=== PATIENT | male | born 1930 | race African-American/Black ===

== ENCOUNTER 2017-02-05 20:36 | Emergency (ER) | payer BC ==
[~2017-02-05] VITALS: Ht 182.9 cm; Wt 83.5 kg
[~2017-02-05 20:36] MED LIST: AMLO5TAB4 PO; ASPI-253 PO; ATOR40TA PO; BIMA2.5D5 OP; BISA5TAB4 PO; CARV12.5 PO; CARV3.12 PO; CARV6.25 PO; CARV6.252 PO; CETI10TA22 PO; CLOP75TA PO; CLOP75TA57 PO; DEXT15DR2 OP; DILT120C80 PO; DILT240C2 PO; DOCU100C28 PO; FAMO-63 PO; FAMO10TA26 PO; FERR-26 PO; FLUT12AE IH; GABA-587 PO; GLIP-24 PO; GLIP5TAB10 PO; HYDR-2762 PO; INSU100I13 SQ; L AC460C PO; LISI-334 PO; LISI10TA2 PO; LISI20TA PO; MOME17SP NS; MONT10TA6 PO; MULT1TAB52 PO; NIAC10002 PO; NIAC50TA3 PO; NITR0.4T22 SL; OMEP20CA9 PO; PANT40TA3 PO; RANI300C PO; SENN-79 PO; TERA10CA3 PO; TICA90TA PO; [UNRECOGNIZED DRUG - CODE] PO
--- NOTE | 2017-02-05 22:14 | PHYS DOC ---
Past Medical History Past Medical History: Anemia, CAD, Constipation, COPD, Diabetes-Type II, GERD, High Cholesterol, Hypertension, [place], Renal Disease, Sciatica Additional Past Medical Histor: " IRREGULAR HEART BEAT" CERVICALGIA, ENLARGED PROSTATE, TACHYCARDIA Past Surgical History: Other Additional Past Surgical Histo: CARDIAC STENTS," STENTS IN LEGS" Alcohol Use: None Drug Use: None Adult General Chief Complaint Chief Complaint: DIZZY/LIGHT HEADED [facility] Patient is a 87 year old male who presents with dizziness sensation of lightheadedness just prior to arrival that has since resolved. No headache or blurry vision. There was associated nausea and diaphoresis with this episode. No prior episodes like this before. No chest pain shortness of breath abdominal pain. Patient currently is without complaints. Review of Systems Review of Systems Constitutional: Denies fever or chills [] Eyes: Denies change in visual acuity, redness, or eye pain [] HENT: Denies nasal congestion or sore throat [] Respiratory: Denies cough or shortness of breath [] Cardiovascular: No additional information not addressed in HPI [] GI: Denies abdominal pain, nausea, vomiting, bloody stools or diarrhea [] : Denies dysuria or hematuria [] Musculoskeletal: Denies back pain or joint pain [] Integument: Denies rash or skin lesions [] Neurologic: Denies headache, focal weakness or sensory changes [] Endocrine: Denies polyuria or polydipsia [ All review systems are negative except as mentioned in the history of present illness] Allergies Allergies Allergies Coded Allergies Type Severity Reaction Last Updated Verified Iodinated Contrast- Oral and IV Dye Allergy Intermediate BLISTERS 03/03/14 Yes Penicillins Allergy Intermediate Hives 03/03/14 Yes Physical Exam Physical Exam Constitutional: Well developed, well nourished, no acute distress, non-toxic appearance. [] HENT: Normocephalic, atraumatic, bilateral external ears normal, oropharynx moist, no oral exudates, nose normal. [] Eyes: PERRLA, EOMI, conjunctiva normal, no discharge. [] Neck: Normal range of motion, no tenderness, supple, no stridor. [] Cardiovascular:Heart rate regular rhythm, no murmur [] Lungs & Thorax: Bilateral breath sounds clear to auscultation [] Abdomen: Bowel sounds normal, soft, no tenderness, no masses, no pulsatile masses. [] Skin: Warm, dry, no erythema, no rash. [] Back: No tenderness, no CVA tenderness. [] Extremities: No tenderness, no cyanosis, no clubbing, ROM intact, no edema. [] Neurologic: Alert and oriented X 3, normal motor function, normal sensory function, no focal deficits noted. Cranial nerves II through XII grossly intact [] Psychologic: Affect normal, judgement normal, mood normal. [] Current Patient Data Vital Signs Vital Signs Date Time Temp Pulse Resp B/P (MAP) Pulse Ox O2 Delivery O2 Flow Rate FiO2 02/05/17 21:45 42 13 159/73 (101) 95 Room Air 02/05/17 20:50 97.7 97.7 Lab Values Laboratory Tests Test 02/05/17 20:45 02/05/17 20:50 02/05/17 22:44 02/05/17 23:09 Glucose (Fingerstick) 63 mg/dL (70-99) L 81 mg/dL (70-99) White Blood Count 6.9 x10^3/uL (4.0-11.0) Red Blood Count 4.33 x10^6/uL (4.30-5.70) Hemoglobin 12.1 g/dL (13.0-17.5) L Hematocrit 36.8 % (39.0-53.0) L Mean Corpuscular Volume 85 fL (79-100) Mean Corpuscular Hemoglobin 28 pg (25-35) Mean Corpuscular Hemoglobin Concent 33 g/dL (31-37) Red Cell Distribution Width 16.2 % (11.5-14.5) H Platelet Count 248 x10^3/uL (140-400) Neutrophils (%) (Auto) 68 % (31-73) Lymphocytes (%) (Auto) 22 % (24-48) L Monocytes (%) (Auto) 8 % (0-9) Eosinophils (%) (Auto) 1 % (0-3) Basophils (%) (Auto) 1 % (0-3) Neutrophils # (Auto) 4.7 x10^3uL (1.8-7.7) Lymphocytes # (Auto) 1.5 x10^3/uL (1.0-4.8) Monocytes # (Auto) 0.6 x10^3/uL (0.0-1.1) Eosinophils # (Auto) 0.1 x10^3/uL (0.0-0.7) Basophils # (Auto) 0.1 x10^3/uL (0.0-0.2) Sodium Level 140 mmol/L (136-145) Potassium Level 4.3 mmol/L (3.5-5.1) Chloride Level 103 mmol/L (98-107) Carbon Dioxide Level 26 mmol/L (21-32) Anion Gap 11 (6-14) Blood Urea Nitrogen 17 mg/dL (8-26) Creatinine 1.8 mg/dL (0.7-1.3) H Estimated GFR (Cockcroft-Gault) 43.6 BUN/Creatinine Ratio 9 (6-20) Glucose Level 62 mg/dL (70-99) L Calcium Level 9.6 mg/dL (8.5-10.1) Total Bilirubin 0.3 mg/dL (0.2-1.0) Aspartate Amino Transferase (AST) 25 U/L (15-37) Alanine Aminotransferase (ALT) 23 U/L (16-63) Alkaline Phosphatase 129 U/L (46-116) H Troponin I Quantitative 0.020 ng/mL (0.000-0.055) Total Protein 7.2 g/dL (6.4-8.2) Albumin 3.5 g/dL (3.4-5.0) Albumin/Globulin Ratio 0.9 (1.0-1.7) L Urine Collection Type Unknown Urine Color Yellow Urine Clarity Clear Urine pH 5.5 Urine Specific Mccloud <=1.005 Urine Protein Negative mg/dL (NEG-TRACE) Urine Glucose (UA) Negative mg/dL (NEG) Urine Ketones (Stick) Negative mg/dL (NEG) Urine Blood Trace (NEG) Urine Nitrite Negative (NEG) Urine Bilirubin Negative (NEG) Urine Urobilinogen Dipstick 0.2 mg/dL (0.2 mg/dL) Urine Leukocyte Esterase Negative (NEG) Urine RBC Occ /HPF (0-2) Urine WBC 0 /HPF (0-4) Urine Squamous Epithelial Cells None /LPF Urine Bacteria 0 /HPF (0-FEW) Laboratory Tests 02/05/17 20:50 Laboratory Tests 02/05/17 20:50 EKG EKG EKG sinus rhythm bradycardia rate of 48 no STEMI no ischemic changes QTC normal my interpretation [] Radiology/Procedures Radiology/Procedures Chest x-ray [cardiomegaly] Course & Med Decision Making Course & Med Decision Making Pertinent Labs and Imaging studies reviewed. (See chart for details) Patient is asymptomatic on initial exam. We will check labs EKG chest x-ray to exclude any other issues. Creatinine was at baseline. EKG chest x-ray unremarkable. Patient's symptoms are resolved and was feeling improved and wanted to go home. [] Dragon Disclaimer Dragon Disclaimer This electronic medical record was generated, in whole or in part, using a voice recognition dictation system. Departure Departure Impression: Primary Impression: Dizziness Disposition: HOME, SELF-CARE Condition: IMPROVED Referrals: AB LEVI MD (PCP) Patient Instructions: Dizziness, [id number] NEDA LAROSE MD Feb 05, 2017 22:14
[2017-02-05 22:16] LABS: BASO # 0.1 x10^3/uL (0.0-0.2); BASO % 1 % (0-3); EOS % 1 % (0-3); HEMATOCRIT 36.8 % (39.0-53.0); HEMOGLOBIN 12.1 g/dL (13.0-17.5); LYMPH # 1.5 x10^3/uL (1.0-4.8); LYMPH % 22 % (24-48); MEAN CORPUSCULAR HEMOGLOBIN 28 pg (25-35); MEAN CORPUSCULAR HGB CONC 33 g/dL (31-37); MEAN CORPUSCULAR VOLUME 85 fL (79-100); MONO % 8 % (0-9); NEUT % 68 % (31-73); PLATELET COUNT 248 x10^3/uL (140-400); RED BLOOD COUNT 4.33 x10^6/uL (4.30-5.70); RED CELL DISTRIBUTION WIDTH 16.2 % (11.5-14.5); WHITE BLOOD COUNT 6.9 x10^3/uL (4.0-11.0)
[2017-02-05 22:33] LABS: CALCIUM 9.6 mg/dL (8.5-10.1); CREATININE 1.8 mg/dL (0.7-1.3); GFR 43.6; POTASSIUM 4.3 mmol/L (3.5-5.1)
[2017-02-05 22:47] LABS: ALBUMIN 3.5 g/dL (3.4-5.0); ALBUMIN/GLOBULIN RATIO 0.9 (1.0-1.7); TOTAL BILIRUBIN 0.3 mg/dL (0.2-1.0); TOTAL PROTEIN 7.2 g/dL (6.4-8.2)
[2017-02-05 22:51] LABS: BILIRUBIN,URINE NEGATIVE (NEG); GLUCOSE,URINE NEGATIVE (NEG); NITRITE,URINE NEGATIVE (NEG); PH,URINE 5.5; PROTEIN,URINE NEGATIVE (NEG-TRACE); UROBILINOGEN,URINE 0.2 mg/dL (0.2 mg/dL)
[2017-02-05 22:57] LABS: BACTERIA,URINE 0 /HPF (0-FEW); RBC,URINE OCC /HPF (0-2); WBC,URINE 0 /HPF (0-4)
[2017-02-05 23:15] VITALS: BP 191/81
--- NOTE | 2017-02-06 06:39 | EKG ---
[facility] [address] [place] [address] Test Date: 2017-02-05 Test Time: 20:50:27 Pat Name: BLAZE ZHENG Department: Room: Gender: M Cut Off Man: : 1930 Requested By: NDEA LAROSE Order Number: [id number] Reading MD: Measurements Intervals [place] Rate: 48 P: -106 MD: 172 QRS: -30 QRSD: 96 T: 59 QT: 458 QTc: 409 Interpretive Statements SUPRAVENTRICULAR RHYTHM ABNORMAL LEFT AXIS DEVIATION LEFT ANTERIOR FASCICULAR BLOCK RI6.01 Unconfirmed report No previous ECG available for comparison
--- NOTE | 2017-02-06 07:40 | RAD ---
Portable chest, 2016: History: Dizzy spell Comparison is made to a study from 08/19/2016. The heart size is normal. There is calcific plaquing of the aorta. The pulmonary vascularity is within normal limits. No pulmonary infiltrates are seen. There is no evidence of pleural fluid. IMPRESSION: No acute cardiopulmonary abnormality is detected.
== END 2017-02-05 23:26 | disposition home or self-care (01) ==
LOC: ER 20:36
DX: R42 Dizziness and giddiness (principal); R61 Generalized hyperhidrosis; R11.0 Nausea; I25.10 Atherosclerotic heart disease of native coronary artery without angina pectoris; J44.9 Chronic obstructive pulmonary disease, unspecified; E11.22 Type 2 diabetes mellitus with diabetic chronic kidney disease; I12.9 Hypertensive chronic kidney disease with stage 1 through stage 4 chronic kidney disease, or unspecified chronic kidney disease; N18.9 Chronic kidney disease, unspecified; K21.9 Gastro-esophageal reflux disease without esophagitis; E78.00 Pure hypercholesterolemia, unspecified; N40.0 Benign prostatic hyperplasia without lower urinary tract symptoms; I25.2 Old myocardial infarction; Z95.5 Presence of coronary angioplasty implant and graft; Z88.0 Allergy status to penicillin; Z91.041 Radiographic dye allergy status
CPT/HCPCS: 36415; 71010; 80053; 81001; 82962; 84484; 85027; 93005; 99285-25

== ENCOUNTER → 2017-02-12 | Outpatient (CLI) | payer BC ==
[2017-02-05 23:15] VITALS: BP 191/81
--- NOTE | 2017-02-12 12:37 | KCIC ---
MRA Brain History:Chronic headaches, dizziness, blurred vision, hypertension Technique: 3-D [id number] MR angiography was performed of the brain. Axial FLAIR and diffusion images were also acquired. Comparison: None Contrast: None Findings: Determination of any degree of stenosis is based on NASCET criteria. There is no evidence of recent infarct or intracranial mass effect. Both vertebral arteries constitute the basilar artery. There is visualization of segments bilateral PICAs and AICAs. There is visualization of bilateral superior cerebellar arteries. There is fairly prominent left posterior communicating artery, no significant right posterior communicating artery visualized. There is small caliber anterior communicating artery. There is visualization of bilateral anterior, middle, and posterior cerebral arteries. Left P1 segment is very hypoplastic. More distal anterior cerebral arteries are not included. Flow is seen in the petrous, cavernous, and supraclinoid internal carotid arteries. Allowing for motion, no significant focal stenosis or aneurysm is identified. Impression: 1. Allowing for motion, no significant stenosis or aneurysm is identified. Neck MRA without contrast History:Chronic headaches, dizziness, blurred vision, hypertension Technique: [id number] MR angiography was performed of the neck. Contrast: None due to patient's renal function Comparison: None Findings: Determination of any degree of stenosis is based on NASCET criteria. Exam is limited due to lack of contrast and also fairly prominent motion. Antegrade flow is demonstrated in the bilateral vertebral arteries as well as the bilateral common and internal carotid arteries. Origins of great vessel are not fully included for accurate evaluation, also artifact in this area. There is tortuosity of the distal cervical left internal carotid artery, also of the mid cervical right internal carotid artery. No significant focal stenosis is identified of the left common or internal carotid arteries. Accurate evaluation for stenosis of the mid right internal carotid artery is limited due to degree of tortuosity, difficult to exclude more significant narrowing at site of maximal tortuosity. No significant focal stenosis is identified of the visualized vertebral arteries. Impression: 1. Exam is limited as stated due to lack of contrast and motion. No significant stenosis is identified of the left internal or common carotid arteries. There is greater degree of tortuosity of the mid right internal carotid artery, difficult to exclude stenosis at site of maximal tortuosity. Electronically signed by: Ryan Nicole MD (02/12/2017 12:34 PM) [id number]
== END | disposition home or self-care (01) ==
LOC: KCIC MRI 10:09
PROVIDERS: ATTEND Internal Medicine
DX: R51 Headache (principal); R42 Dizziness and giddiness; H53.8 Other visual disturbances
CPT/HCPCS: 70544; 70547

== ENCOUNTER → 2017-03-08 | Outpatient (CLI) | payer BC ==
--- NOTE | 2017-03-08 15:24 | RAD ---
CT of the paranasal sinuses without contrast 03/08/2017 Indication: Chronic sinusitis Comparison study: CT of the head without contrast October 09, 2014. Technique: Multidetector CT imaging of the paranasal sinuses was performed without the administration of IV contrast. Findings: Limited visualization of intracranial structures demonstrates expected senescent changes no acute abnormality is identified. Intracranial vascular calcification noted. Postsurgical changes to the bilateral globes consistent with prior cataract surgery noted. Correlate with clinical history. Globes are otherwise unremarkable. No intraorbital abnormalities are appreciated. There is no evidence of acute sinusitis. No fluid levels are seen within the paranasal sinuses. No significant mucosal thickening is identified. No erosive or hypertrophic bony changes involving the paranasal sinuses is identified. The bilateral ostiomeatal units are patent. 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 Minimal leftward deviation of the nasal septum anteriorly is seen. Minimal rightward deviation of the septum posteriorly is noted. Impression: No CT evidence of acute or chronic sinusitis is identified.
== END | disposition home or self-care (01) ==
LOC: CT 09:31
PROVIDERS: ATTEND Otolaryngology
DX: J32.9 Chronic sinusitis, unspecified (principal)
CPT/HCPCS: 70486

== ENCOUNTER 2017-07-07 16:19 | Emergency (ER) | payer BC ==
[~2017-07-07] VITALS: Ht 182.9 cm; Wt 83.5 kg
[~2017-07-07 16:19] MED LIST changes: +HYDR-2868 PO
[2017-07-07] MEDS ORDERED: AMIO200T2 PO (17:21)
--- NOTE | 2017-07-07 17:31 | PHYS DOC ---
Past Medical History Past Medical History: Anemia, CAD, Constipation, COPD, Diabetes-Type II, GERD, High Cholesterol, Hypertension, [place], Renal Disease, Sciatica Additional Past Medical Histor: " IRREGULAR HEART BEAT" CERVICALGIA, ENLARGED PROSTATE, TACHYCARDIA Past Surgical History: Other Additional Past Surgical Histo: CARDIAC STENTS," STENTS IN LEGS" Alcohol Use: None Drug Use: None Adult General Chief Complaint Chief Complaint: HYPERTENSION HPI HPI Patient is a 87 year old male who presents with complaint of high blood pressure. The patient states that he has history of high blood pressure and is currently following Dr. Holbrook of cardiology. Patient was recently admitted to the hospital last month for treatment of acute encephalopathy and hypertension. The patient is currently on hydralazine, lisinopril, diltiazem, and amiodarone at home for treatment. Patient has history of coronary artery disease and has had a coronary stent placed in the past. Patient states that he has been having intermittent headaches but denies any symptoms currently. The patient's main concern is that his blood pressure is elevated. Patient has been keeping a log of his blood pressures at home and states that they have reached 200 systolic at their highest. The patient currently has a blood pressure of 178 /84. Review of Systems Review of Systems Constitutional: Denies fever or chills [] Eyes: Denies change in visual acuity, redness, or eye pain [] HENT: Denies nasal congestion or sore throat [] Respiratory: Denies cough or shortness of breath [] Cardiovascular: Denies chest pain or edema[] GI: Denies abdominal pain, nausea, vomiting, bloody stools or diarrhea [] : Denies dysuria or hematuria [] Musculoskeletal: Denies back pain or joint pain [] Integument: Denies rash or skin lesions [] Neurologic: Occasional headaches, denies any headache currently, denies focal weakness or sensory changes [] All other systems were reviewed and found to be within normal limits, except as documented in this note. Current Medications Current Medications Current Medications Medications (Trade) Dose Ordered Sig/Alberto Start Time Stop Time Status Last Admin Dose Admin Hydralazine HCl (Apresoline Inj) 10 mg 1X ONCE 07/07/17 19:00 07/07/17 19:01 DC 07/07/17 19:13 10 MG Allergies Allergies Allergies Coded Allergies Type Severity Reaction Last Updated Verified Iodinated Contrast- Oral and IV Dye Allergy Intermediate BLISTERS 8/5/14 Yes Penicillins Allergy Intermediate Hives 03/03/14 Yes Physical Exam Physical Exam Constitutional: Alert, afebrile, no acute distress. [] HENT: Normocephalic, atraumatic, bilateral external ears normal, oropharynx moist, no oral exudates, nose normal. [] Eyes: PERRLA, EOMI, conjunctiva normal, no discharge. [] Neck: Normal range of motion, no tenderness, supple, no stridor. [] Cardiovascular: Bradycardia, regular rhythm, no murmur [] Lungs & Thorax: Bilateral breath sounds clear to auscultation [] Abdomen: Bowel sounds normal, soft, no tenderness, no masses, no pulsatile masses. [] Skin: Warm, dry, no erythema, no rash. [] Back: No tenderness, no CVA tenderness. [] Extremities: No tenderness, no cyanosis, no clubbing, ROM intact, no edema. [] Neurologic: Alert and oriented X 3, normal motor function, normal sensory function, no focal deficits noted. [] Current Patient Data Vital Signs Vital Signs Date Time Temp Pulse Resp B/P (MAP) Pulse Ox O2 Delivery O2 Flow Rate FiO2 07/07/17 19:44 46 23 98 07/07/17 19:13 202/87 07/07/17 17:11 Room Air Lab Values Laboratory Tests Test 07/07/17 18:05 White Blood Count 7.4 x10^3/uL (4.0-11.0) Red Blood Count 4.40 x10^6/uL (4.30-5.70) Hemoglobin 12.1 g/dL (13.0-17.5) L Hematocrit 37.2 % (39.0-53.0) L Mean Corpuscular Volume 85 fL (79-100) Mean Corpuscular Hemoglobin 28 pg (25-35) Mean Corpuscular Hemoglobin Concent 33 g/dL (31-37) Red Cell Distribution Width 16.2 % (11.5-14.5) H Platelet Count 212 x10^3/uL (140-400) Neutrophils (%) (Auto) 52 % (31-73) Lymphocytes (%) (Auto) 34 % (24-48) Monocytes (%) (Auto) 9 % (0-9) Eosinophils (%) (Auto) 3 % (0-3) Basophils (%) (Auto) 1 % (0-3) Neutrophils # (Auto) 3.9 x10^3uL (1.8-7.7) Lymphocytes # (Auto) 2.5 x10^3/uL (1.0-4.8) Monocytes # (Auto) 0.7 x10^3/uL (0.0-1.1) Eosinophils # (Auto) 0.2 x10^3/uL (0.0-0.7) Basophils # (Auto) 0.1 x10^3/uL (0.0-0.2) Sodium Level 138 mmol/L (136-145) Potassium Level 4.1 mmol/L (3.5-5.1) Chloride Level 104 mmol/L (98-107) Carbon Dioxide Level 24 mmol/L (21-32) Anion Gap 10 (6-14) Blood Urea Nitrogen 16 mg/dL (8-26) Creatinine 1.6 mg/dL (0.7-1.3) H Estimated GFR (Cockcroft-Gault) 50.0 Glucose Level 66 mg/dL (70-99) L Calcium Level 8.8 mg/dL (8.5-10.1) Magnesium Level 2.0 mg/dL (1.8-2.4) Laboratory Tests 07/07/17 18:05 Laboratory Tests 07/07/17 18:05 EKG EKG Interpreted by me: Heart rate 44, sinus bradycardia, prolonged [place] interval, left axis deviation, no acute ST/T-wave abnormalities present] Radiology/Procedures Radiology/Procedures Not performed[] Course & Med Decision Making Course & Med Decision Making Pertinent Labs and Imaging studies reviewed. (See chart for details) The patient was given IV hydralazine in the emergency department after patient' s blood pressure increased to 200/101. Patient remained asymptomatic in the emergency department and the patient's blood work appears stable compared to previous. I spoke with the patient's small craft operator, Dr. Holbrook. He recommended that the patient's hydralazine prescription be changed to 50 mg 3 times a day. Patient was provided with a new prescription and advised to make this change to his medication starting tomorrow morning. Advised follow-up with Dr. Holbrook in 2-3 days for reevaluation and return emergency department for any worsening symptoms. Patient was understanding and in agreement with treatment plan. Dragon Disclaimer Dragon Disclaimer This electronic medical record was generated, in whole or in part, using a voice recognition dictation system. Departure Departure Impression: Primary Impression: HTN (hypertension) Disposition: HOME, SELF-CARE Condition: IMPROVED Referrals: AB LEVI MD (PCP) Patient Instructions: Hypertension Additional Instructions: Follow-up with Dr. Holbrook of cardiology in the next 2 days for reevaluation. You will start on your new dose of hydralazine as prescribed to today tomorrow morning. Please return to the emergency department for any worsening symptoms. Scripts Hydralazine Hcl (HYDRALAZINE HCL) 50 Mg Tablet 1 TAB PO TID, #90 TAB 0 Refills Prov: NEDA CANALES MD 07/07/17 Problem Qualifiers Primary Impression: HTN (hypertension) Hypertension type: essential hypertension Qualified Codes: I10 - Essential ( primary) hypertension NEDA CANALES MD Jul 07, 2017 17:31
[2017-07-07 18:17] LABS: BASO # 0.1 x10^3/uL (0.0-0.2); BASO % 1 % (0-3); EOS % 3 % (0-3); HEMATOCRIT 37.2 % (39.0-53.0); HEMOGLOBIN 12.1 g/dL (13.0-17.5); LYMPH # 2.5 x10^3/uL (1.0-4.8); LYMPH % 34 % (24-48); MEAN CORPUSCULAR HEMOGLOBIN 28 pg (25-35); MEAN CORPUSCULAR HGB CONC 33 g/dL (31-37); MEAN CORPUSCULAR VOLUME 85 fL (79-100); MONO % 9 % (0-9); NEUT % 52 % (31-73); PLATELET COUNT 212 x10^3/uL (140-400); RED CELL DISTRIBUTION WIDTH 16.2 % (11.5-14.5); WHITE BLOOD COUNT 7.4 x10^3/uL (4.0-11.0)
--- NOTE | 2017-07-07 18:17 | EKG ---
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
[2017-07-07 18:25] LABS: CALCIUM 8.8 mg/dL (8.5-10.1); CREATININE 1.6 mg/dL (0.7-1.3); POTASSIUM 4.1 mmol/L (3.5-5.1)
[2017-07-07] MEDS ORDERED: hydrALAZINE 20 MG/ML VIAL. IVP ONE (19:00)
[2017-07-07] MEDS ORDERED: HYDR-2869 PO (19:37)
[2017-07-07 19:44] VITALS: BP 193/86
[2017-07-07 19:54] LABS: BILIRUBIN,URINE NEGATIVE (NEG); GLUCOSE,URINE NEGATIVE (NEG); NITRITE,URINE NEGATIVE (NEG); PH,URINE 6.5; PROTEIN,URINE 30 mg/dL (NEG-TRACE); UROBILINOGEN,URINE 0.2 mg/dL (0.2 mg/dL)
[2017-07-07 20:12] LABS: BACTERIA,URINE 0 /HPF (0-FEW); WBC,URINE OCC /HPF (0-4)
== END 2017-07-07 19:53 | disposition home or self-care (01) ==
LOC: ER 16:19
DX: I12.9 Hypertensive chronic kidney disease with stage 1 through stage 4 chronic kidney disease, or unspecified chronic kidney disease (principal); E11.22 Type 2 diabetes mellitus with diabetic chronic kidney disease; N18.9 Chronic kidney disease, unspecified; I25.10 Atherosclerotic heart disease of native coronary artery without angina pectoris; J44.9 Chronic obstructive pulmonary disease, unspecified; K21.9 Gastro-esophageal reflux disease without esophagitis; E78.00 Pure hypercholesterolemia, unspecified; N40.0 Benign prostatic hyperplasia without lower urinary tract symptoms; I25.2 Old myocardial infarction; Z95.5 Presence of coronary angioplasty implant and graft; Z88.0 Allergy status to penicillin; Z79.899 Other long term (current) drug therapy; Z91.041 Radiographic dye allergy status
CPT/HCPCS: 36415; 80048; 81001; 83735; 85025; 93005; 96374; 99285; J0360

== ENCOUNTER 2017-07-20 07:34 | Outpatient (CLI) | payer BC ==
[~2017-07-20] VITALS: Ht 182.9 cm; Wt 86.6 kg
[2017-07-20] VITALS (10 sets, daily range): BP systolic 171–220; BP diastolic 67–90
[~2017-07-20 07:34] MED LIST changes: +AMIO200T2 PO; +HYDR-2869 PO
[2017-07-20 08:20] LABS: HEMOGLOBIN 12.9 g/dL (13.0-17.5); RED BLOOD COUNT 4.6 x10^6/uL (4.30-5.70); RED CELL DISTRIBUTION WIDTH 16.6 % (11.5-14.5); WHITE BLOOD COUNT 5.9 x10^3/uL (4.0-11.0)
[2017-07-20] MEDS ORDERED: diphenhydrAMINE 50 MG/ML VIAL IVP ONE (08:20)
[2017-07-20] MEDS ORDERED: methylPREDNISolone SOD SUCC PF 125 MG/2 ML VIAL. IV ONE (08:30)
[2017-07-20] MEDS ORDERED: FAMOTIDINE 20 MG/2 ML VIAL IVP ONE (08:30)
[2017-07-20 08:31] LABS: INR 1.1 (0.8-1.1); PROTHROMBIN TIME PATIENT 13.6 SEC (11.7-14.0)
[2017-07-20 08:53] LABS: CALCIUM 9.1 mg/dL (8.5-10.1); CREATININE 1.7 mg/dL (0.7-1.3); GFR 46.6
[2017-07-20] MEDS ORDERED: LIDOCAINE 2% 20 ML VIAL. ONE (08:55)
[2017-07-20] MEDS ORDERED: IODIXANOL 320 MG/ML 100 ML VIAL. ONE ×2 (08:55→09:42)
[2017-07-20] MEDS ORDERED: PANT40TA5 PO (09:05)
[2017-07-20] MEDS ORDERED: DILT120C71 PO (09:05)
[2017-07-20] MEDS ORDERED: MIDAZOLAM HCL/PF 2 MG/2 ML VIAL. ONE (09:16)
[2017-07-20] MEDS ORDERED: fentaNYL PF VIAL 100 MCG/2 ML VIAL ONE (09:16)
--- NOTE | 2017-07-20 09:29 | PDOC ---
MODERATE SEDATION ASSESSMENT RISKS/ALTERNATIVES Risks/Alternatives Risks and alternatives of this type of sedation and procedure discussed with: RISK/ALTERNATIVES: Patient H & P ON CHART H & P H & P on chart and reviewed for co-morbid conditions and appropriate labs. H&P ON CHART: Yes STATUS PREG STATUS ASSESSED: N/A MEDS/ALLERGIES REVIEWED Meds/Allergies Reviewed Medications and Allergies including time and route of recently administered narcotics and sedatives. MEDS/ALLERGIES REVIEWED: Yes ASA RATING ASA RATING: II AIRWAY ASSESSMENT Airway Assessment Airway patency, oral function limitations, presence of caps, crowns, dentures, partials, and ability to extend neck assessed. AIRWAY ASSESSMENT: Yes MALLAMPATI SCORE MALLAMPATI SCORE: II PRE-SEDATION ASSESSMENT PRE-SEDATION ASSESSMENT: Yes KIM CAGE MD Jul 20, 2017 09:29
[2017-07-20] MEDS ORDERED: HEPARIN for IV BOLUS 10,000 UNIT/10 ML VIAL. ONE (09:47)
[2017-07-20] MEDS ORDERED: MIDAZOLAM HCL/PF 2 MG/2 ML VIAL. IV ONE (10:00)
[2017-07-20] MEDS ORDERED: CONTRAST GIVEN MC PRN (10:00)
[2017-07-20] MEDS ORDERED: LIDOCAINE 2% 20 ML VIAL. IJ ONE (10:00)
[2017-07-20] MEDS ORDERED: IODIXANOL 320 MG/ML 100 ML VIAL. IART ONE (10:00)
[2017-07-20] MEDS ORDERED: HEPARIN for IV BOLUS 10,000 UNIT/10 ML VIAL. IV ONE (10:00)
[2017-07-20] MEDS ORDERED: fentaNYL PF VIAL 100 MCG/2 ML VIAL IV ONE (10:00)
[2017-07-20] MEDS ORDERED: IV 1/2 NORMAL SALINE 1,000 ML IV SCH (10:13)
--- NOTE | 2017-07-20 14:36 | CARD ---
MR#: [id number] Date of Study: 07/20/2017 Ordering Physician: KIM HOLBROOK, Referring Physician: KIM HOLBROOK Tech: RT Anabell (R) APPROVED REPORT Technologist: RT Anabell (R) Nurse: Elo Scanlon R.N. Procedure(s) performed: 1. Left heart catheterization and selective coronary angiography 2. Bilateral selective renal angiography 3. Instant wave free ratio (IFR) to left anterior descending artery Moderate sedation: 50 min INDICATION The indication(s) include : Unstable angina and resistant hypertension. PROCEDURE NARRATIVE After explaining the risks, benefits and alternative options, informed consent was obtained from akanksha ent. Patient was brought to the cardiac [employer] and his right groin was prepped and draped in the us ual fashion. 20 mL of 2% lidocaine was infiltrated into the skin and subcutaneous tissues for local a nesthesia. Arterial access was obtained the right common femoral artery and a 6 [place] sheath was ins erted. 6 [place] JL4 and 6 [place] JR4 catheters placed to perform selective angiography of the left an d right coronary arteries. The 6 [place] JR4 catheter was used to perform selective angiography of the bilateral renal arteries. Since patient was found to have suspicious lesion involving the left anter ior descending artery angiographically, a decision was made to perform physiologic assessment using I nstant wave free ratio (IFR) measurement. The lesion was crossed with [place] V[place]ata PressureWire an d IFR measurement was made which came back physiologically not significant at 0.94. Left ventriculogr aphy was not performed due to elevated creatinine level. Patient part of the procedure well. Hemostas is was achieved using Mynx closure device per there were no immediate complications. FINDINGS 1. The left main coronary artery arose from the left sinus of Valsalva, gave rise to the left anteri or descending and left circumflex arteries and did not show any significant stenosis. 2. The left anterior descending artery showed 40-50% stenosis in the midsegment there was physiologi giuliano not significant based on IFR measurement of 0.94. 3. The left circumflex artery showed a widely patent stent in the midsegment. The obtuse marginal br anch showed 40% stenosis in the proximal to midsegment. 4. The right coronary artery was a dominant vessel arising from the right sinus of Valsalva that jyoti wed a long 90% stenosis in the midsegment and chronic total occlusion in the mid to distal segment wi th faint distal reconstitution from left to right collaterals. 5. Bilateral selective renal angiography did not show any significant renal artery stenosis. Conclusion 1. 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 Angiographically suspicious lesion involving the left anterior descending artery satinder t was found to be insignificant based on IFR measurement of 0.94. The previously placed stent in the left circumflex artery was widely patent. 2. No significant renal artery stenosis. Recommendations Medical Therapy Signed by : Kim Holbrook, Electronically Approved : 07/20/2017 14:36:16
== END 2017-07-20 12:40 | disposition home or self-care (01) ==
LOC: CCL 07:34
PROVIDERS: ATTEND Internal Medicine Cardiovascular Disease
DX: I24.0 Acute coronary thrombosis not resulting in myocardial infarction (principal); E78.00 Pure hypercholesterolemia, unspecified; J44.9 Chronic obstructive pulmonary disease, unspecified; K21.9 Gastro-esophageal reflux disease without esophagitis; I12.9 Hypertensive chronic kidney disease with stage 1 through stage 4 chronic kidney disease, or unspecified chronic kidney disease; E11.22 Type 2 diabetes mellitus with diabetic chronic kidney disease; N18.9 Chronic kidney disease, unspecified; F17.200 Nicotine dependence, unspecified, uncomplicated; Z86.69 Personal history of other diseases of the nervous system and sense organs; Z88.0 Allergy status to penicillin; Z91.041 Radiographic dye allergy status; Z86.39 Personal history of other endocrine, nutritional and metabolic disease
CPT/HCPCS: 36252; 36415; 80048; 85027; 85610; 85730; 93454; 99152; 99153; C1769; C1771; C1892; J1200; J1644; J2250; J2930; J3010; S0028; J2001

== ENCOUNTER → 2017-09-13 | Outpatient (CLI) | payer OTHER, BC | END | disposition home or self-care (01) | LOC: ECHO 07:18 | DX: I25.10 Atherosclerotic heart disease of native coronary artery without angina pectoris (principal); I10 Essential (primary) hypertension; I36.1 Nonrheumatic tricuspid (valve) insufficiency; I37.1 Nonrheumatic pulmonary valve insufficiency; I51.7 Cardiomegaly | CPT/HCPCS: 93226; 93306 ==

== ENCOUNTER 2017-12-14 07:59 | Outpatient (CLI) | payer OTHER ==
[2017-12-14] MEDS ORDERED: IODIXANOL 320 MG/ML 100 ML VIAL. (08:17)
[2017-12-14] MEDS ORDERED: methylPREDNISolone SOD SUCC PF 125 MG/2 ML VIAL. ×2 (08:24→08:25)
[2017-12-14] MEDS ORDERED: FAMOTIDINE 20 MG/2 ML VIAL ×2 (08:24→08:25)
[2017-12-14] MEDS ORDERED: MIDAZOLAM HCL/PF 2 MG/2 ML VIAL. ×2 (08:25→09:19)
[2017-12-14] MEDS ORDERED: diphenhydrAMINE HCL 25 MG CAPSULE PO (08:25)
[2017-12-14] MEDS ORDERED: fentaNYL PF VIAL 100 MCG/2 ML VIAL (08:25)
[2017-12-14] MEDS ORDERED: diphenhydrAMINE 50 MG/ML VIAL (08:25)
[2017-12-14 08:28] LABS: HEMATOCRIT 38.3 % (39.0-53.0); MEAN CORPUSCULAR HEMOGLOBIN 29 pg (25-35); MEAN CORPUSCULAR HGB CONC 34 g/dL (31-37); MEAN CORPUSCULAR VOLUME 86 fL (79-100); PLATELET COUNT 217 x10^3/uL (140-400); RED BLOOD COUNT 4.46 x10^6/uL (4.30-5.70); RED CELL DISTRIBUTION WIDTH 16.7 % (11.5-14.5)
[2017-12-14 08:34] LABS: ANION GAP 6 (6-14); BLOOD UREA NITROGEN 12 mg/dL (8-26); CALCIUM 9.6 mg/dL (8.5-10.1); CARBON DIOXIDE 28 mmol/L (21-32); CHLORIDE 107 mmol/L (98-107); CREATININE 1.5 mg/dL (0.7-1.3); GFR 53.8; GLUCOSE 101 mg/dL (70-99); POTASSIUM 4.3 mmol/L (3.5-5.1); SODIUM 141 mmol/L (136-145)
[2017-12-14] MEDS ORDERED: HEPARIN for IV BOLUS 10,000 UNIT/10 ML VIAL. (08:37)
[2017-12-14 08:38] LABS: INR 1.1 (0.8-1.1); PROTHROMBIN TIME PATIENT 13.3 SEC (11.7-14.0)
[2017-12-14] MEDS: diphenhydrAMINE HCL 25 MG CAPSULE PO (08:40)
[2017-12-14] MEDS: methylPREDNISolone SOD SUCC PF 125 MG/2 ML VIAL. IV (08:40)
[2017-12-14] MEDS: FAMOTIDINE 20 MG/2 ML VIAL IVP (08:40)
[2017-12-14] MEDS ORDERED: HEPARIN for IV BOLUS 10,000 UNIT/10 ML VIAL. INT CAT (09:00)
[2017-12-14] MEDS ORDERED: CONTRAST GIVEN. MC (09:00)
[2017-12-14] MEDS ORDERED: IOHEXOL 300 MG/ML 100ML VIAL. IART (09:00)
[2017-12-14] MEDS: IODIXANOL 320 MG/ML 100 ML VIAL. IART (10:08)
[2017-12-14] MEDS: LIDOCAINE 2% 20 ML VIAL. IJ (10:10)
[2017-12-14] MEDS: fentaNYL PF VIAL 100 MCG/2 ML VIAL IV (10:10)
[2017-12-14] MEDS: MIDAZOLAM HCL/PF 2 MG/2 ML VIAL. IV (10:10)
[2017-12-14] MEDS ORDERED: IV 1/2 NORMAL SALINE 1,000 ML IV (10:12)
[2017-12-14] MEDS ORDERED: fentaNYL PF VIAL 100 MCG/2 ML VIAL IV (10:15)
[2017-12-14] MEDS ORDERED: ATROPINE 0.5 MG/5 ML DISP.SYRINGE. IV (10:15)
[2017-12-14] MEDS ORDERED: ACETAMINOPHEN 325 MG TABLET. PO (10:15)
== END 2017-12-14 12:49 | disposition home or self-care (01) ==
LOC: CCL 07:59
DX: I70.213 Atherosclerosis of native arteries of extremities with intermittent claudication, bilateral legs (principal); I12.9 Hypertensive chronic kidney disease with stage 1 through stage 4 chronic kidney disease, or unspecified chronic kidney disease; E11.22 Type 2 diabetes mellitus with diabetic chronic kidney disease; N18.9 Chronic kidney disease, unspecified; E11.42 Type 2 diabetes mellitus with diabetic polyneuropathy; I25.10 Atherosclerotic heart disease of native coronary artery without angina pectoris; E78.00 Pure hypercholesterolemia, unspecified; J44.9 Chronic obstructive pulmonary disease, unspecified; M17.11 Unilateral primary osteoarthritis, right knee; D64.9 Anemia, unspecified; K21.9 Gastro-esophageal reflux disease without esophagitis; I25.2 Old myocardial infarction; Z91.041 Radiographic dye allergy status; Z88.0 Allergy status to penicillin; Z98.42 Cataract extraction status, left eye; Z98.41 Cataract extraction status, right eye; Z95.5 Presence of coronary angioplasty implant and graft; Z85.46 Personal history of malignant neoplasm of prostate; Z85.51 Personal history of malignant neoplasm of bladder; Z87.891 Personal history of nicotine dependence; Z83.3 Family history of diabetes mellitus
CPT/HCPCS: 36246; 36415; 75630; 75716; 80048; 85027; 85610; 99152; 99153; C1769; C1771; C1892; G0269; J1644; J2250; J2930; J3010; Q0163; S0028

== ENCOUNTER 2018-01-08 06:15 | Observation (INO) | payer OTHER ==
[2018-01-08 06:55] LABS: HEMOGLOBIN 12.6 g/dL (13.0-17.5); MEAN CORPUSCULAR HEMOGLOBIN 29 pg (25-35); MEAN CORPUSCULAR HGB CONC 34 g/dL (31-37); MEAN CORPUSCULAR VOLUME 85 fL (79-100); PLATELET COUNT 212 x10^3/uL (140-400); RED BLOOD COUNT 4.33 x10^6/uL (4.30-5.70); RED CELL DISTRIBUTION WIDTH 16.1 % (11.5-14.5); WHITE BLOOD COUNT 5.9 x10^3/uL (4.0-11.0)
[2018-01-08 07:04] LABS: ANION GAP 8 (6-14); BLOOD UREA NITROGEN 15 mg/dL (8-26); CALCIUM 9.2 mg/dL (8.5-10.1); CARBON DIOXIDE 25 mmol/L (21-32); CHLORIDE 105 mmol/L (98-107); CREATININE 1.7 mg/dL (0.7-1.3); GFR 46.6; GLUCOSE 79 mg/dL (70-99); POTASSIUM 4.4 mmol/L (3.5-5.1); SODIUM 138 mmol/L (136-145)
[2018-01-08] MEDS ORDERED: LIDOCAINE 2% 20 ML VIAL. (07:04)
[2018-01-08] MEDS ORDERED: IODIXANOL 320 MG/ML 100 ML VIAL. (07:04)
[2018-01-08] MEDS ORDERED: HEPARIN for ARTERIAL LINE 1,500 ML (07:04)
[2018-01-08 07:05] LABS: INR 1.2 (0.8-1.1); PROTHROMBIN TIME PATIENT 14.6 SEC (11.7-14.0)
[2018-01-08] MEDS ORDERED: methylPREDNISolone SOD SUCC PF 125 MG/2 ML VIAL. (07:55)
[2018-01-08] MEDS ORDERED: FAMOTIDINE 20 MG/2 ML VIAL (07:55)
[2018-01-08] MEDS ORDERED: MIDAZOLAM HCL/PF 2 MG/2 ML VIAL. (07:55)
[2018-01-08] MEDS ORDERED: diphenhydrAMINE 50 MG/ML VIAL (07:55)
[2018-01-08] MEDS ORDERED: fentaNYL PF VIAL 100 MCG/2 ML VIAL (07:55)
[2018-01-08] MEDS ORDERED: HEPARIN for IV BOLUS 10,000 UNIT/10 ML VIAL. (08:25)
[2018-01-08] MEDS ORDERED: NITROGLYCERIN 4 MG/20 ML SYRINGE for CATH LAB. ×2 (08:27→08:30)
[2018-01-08] MEDS ORDERED: dilTIAZem IV PUSH 25 MG/5 ML VIAL (08:27)
[2018-01-08] MEDS: dilTIAZem INJ 10 MG, NITROGLYCERIN 4MG SYRINGE 4 MG, HEPARIN SODIUM 10,000 UNIT, VIPERS... INT CAT (09:15)
[2018-01-08] MEDS ORDERED: CONTRAST GIVEN. MC (09:30)
[2018-01-08] MEDS: FAMOTIDINE 20 MG/2 ML VIAL IVP (10:14)
[2018-01-08] MEDS: diphenhydrAMINE 50 MG/ML VIAL IVP (10:14)
[2018-01-08] MEDS: methylPREDNISolone SOD SUCC PF 125 MG/2 ML VIAL. IV (10:14)
[2018-01-08] MEDS: NITROGLYCERIN 200 MCG/2 ML SYRINGE FOR CATH/VASC LAB. IART (10:14)
[2018-01-08] MEDS: LIDOCAINE 2% 20 ML VIAL. IJ (10:14)
[2018-01-08] MEDS: IODIXANOL 320 MG/ML 100 ML VIAL. IART (10:15)
[2018-01-08] MEDS: fentaNYL PF VIAL 100 MCG/2 ML VIAL IV (10:16)
[2018-01-08] MEDS: MIDAZOLAM HCL/PF 2 MG/2 ML VIAL. IV (10:16)
[2018-01-08] MEDS: HEPARIN for IV BOLUS 10,000 UNIT/10 ML VIAL. IV (10:17)
[2018-01-08] MEDS ORDERED: 0.9 % SODIUM CHLORIDE 10 ML DISP.SYRIN. IV (10:30)
[2018-01-08] MEDS ORDERED: ACETAMINOPHEN 325 MG TABLET. PO (10:30)
[2018-01-08] MEDS ORDERED: MIDAZOLAM HCL/PF 2 MG/2 ML VIAL. IV (10:30)
[2018-01-08] MEDS ORDERED: fentaNYL PF VIAL 100 MCG/2 ML VIAL IV (10:30)
[2018-01-08] MEDS ORDERED: NITROGLYCERIN SUBLINGUAL 0.4 MG BOTTLE OF 25. SL (10:45)
[2018-01-08] MEDS ORDERED: LISINOPRIL 20 MG TABLET PO (11:00)
[2018-01-08] MEDS: AMIODARONE HCL 200 MG TABLET. PO (11:00)
[2018-01-08] MEDS: TIMOLOL 0.5% OPHTH SOLUTION 5ML BOTTLE. OU (11:00)
[2018-01-08] MEDS: BRIMONIDINE 0.2% OPHTH SOLUTION 5ML BOTTLE. OU ×2 (11:00→20:47)
[2018-01-08] MEDS: POLYVINYL ALCOHOL 1.4% OPHTH SOLUTION 15ML BOTTLE. OU ×2 (11:00→20:53)
[2018-01-08] MEDS: CETIRIZINE HCL 10 MG TABLET. PO (11:07)
[2018-01-08] MEDS: SENNOSIDES 8.6 MG TABLET PO (11:07)
[2018-01-08] MEDS: CLOPIDOGREL BISULFATE 75 MG TABLET PO (11:07)
[2018-01-08] MEDS: amLODIPine BESYLATE 5 MG TABLET PO (11:07)
[2018-01-08] MEDS: MULTIVITAMIN with MINERAL TABLET. PO (11:07)
[2018-01-08] MEDS: PANTOPRAZOLE 40 MG TABLET.DR. PO (11:07)
[2018-01-08] MEDS: LOSARTAN POTASSIUM 50 MG TABLET. PO (11:08)
[2018-01-08] MEDS: BUDESONIDE 0.5 MG/2 ML NEBU. NEB ×2 (12:27→19:56)
[2018-01-08] MEDS: ALBUTEROL SULFATE 2.5 MG/3 ML NEBU. NEB ×3 (12:27→19:56)
[2018-01-08] MEDS: hydrALAZINE 20 MG/ML VIAL. IVP (13:14)
[2018-01-08] MEDS: IV 1/2 NORMAL SALINE 1,000 ML IV ×2 (18:52→20:22)
[2018-01-08] MEDS: ATORVASTATIN CALCIUM 40 MG TABLET. PO (20:45)
[2018-01-08] MEDS: TERAZOSIN 5 MG CAPSULE. PO (20:46)
[2018-01-08] MEDS: LATANOPROST 0.005% OPHTH SOLUTION 2.5ML BOTTLE. OU (20:47)
[2018-01-08] MEDS: INSULIN GLARGINE 300 UNITS/3 ML INSULN.PEN. SQ (20:53)
[2018-01-08] MEDS ORDERED: NON FORMULARY ITEM (Brimonidine Tartrate/Timolol (Combigan Eye Drops) 5 ML) OP (21:00)
[2018-01-08] MEDS ORDERED: NON FORMULARY ITEM (Budesonide/Formoterol Fumarate (Symbicort 160-4.5 Mcg Inhaler) 2 PUFF) IH (21:00)
[2018-01-08 21:05] LABS: POC GLUCOSE 244 mg/dL (70-99)
[2018-01-09] MEDS: BUDESONIDE 0.5 MG/2 ML NEBU. NEB (07:22)
[2018-01-09] MEDS: ALBUTEROL SULFATE 2.5 MG/3 ML NEBU. NEB ×2 (07:22→11:19)
[2018-01-09] MEDS: PANTOPRAZOLE 40 MG TABLET.DR. PO (07:55)
[2018-01-09 07:58] LABS: POC GLUCOSE 198 mg/dL (70-99)
[2018-01-09] MEDS: LOSARTAN POTASSIUM 50 MG TABLET. PO (07:58)
[2018-01-09] MEDS: amLODIPine BESYLATE 5 MG TABLET PO (07:59)
[2018-01-09] MEDS: MULTIVITAMIN with MINERAL TABLET. PO (08:00)
[2018-01-09] MEDS: SENNOSIDES 8.6 MG TABLET PO (08:01)
[2018-01-09] MEDS: POLYVINYL ALCOHOL 1.4% OPHTH SOLUTION 15ML BOTTLE. OU (08:02)
[2018-01-09] MEDS: CLOPIDOGREL BISULFATE 75 MG TABLET PO (08:02)
[2018-01-09] MEDS: BRIMONIDINE 0.2% OPHTH SOLUTION 5ML BOTTLE. OU (08:03)
[2018-01-09] MEDS: IV 1/2 NORMAL SALINE 1,000 ML IV (08:07)
[2018-01-09 11:25] LABS: POC GLUCOSE 268 mg/dL (70-99)
[2018-01-09] MEDS: AMIODARONE HCL 200 MG TABLET. PO (14:48)
== END 2018-01-09 15:19 | disposition home or self-care (01) ==
LOC: CCL 06:15 → 2 NORTH 09:40
DX: I70.211 Atherosclerosis of native arteries of extremities with intermittent claudication, right leg (principal); E11.51 Type 2 diabetes mellitus with diabetic peripheral angiopathy without gangrene; E78.5 Hyperlipidemia, unspecified; I10 Essential (primary) hypertension; I25.10 Atherosclerotic heart disease of native coronary artery without angina pectoris; Z91.041 Radiographic dye allergy status; Z88.0 Allergy status to penicillin
CPT/HCPCS: 36415; 37227; 37229; 80048; 82962; 85027; 85610; 93005; 94640; 94760; 96372; 96374; 96375; 99152; 99153; G0269; G0378; G0379; J0360; J1200; J1644; J1815; J2001; J2250; J2930; J3010; J3490; J7030; J7613; J7626; S0028

== ENCOUNTER → 2018-01-23 | Outpatient (CLI) | payer OTHER | END | disposition home or self-care (01) | LOC: KCIC US 07:56 | DX: I25.10 Atherosclerotic heart disease of native coronary artery without angina pectoris (principal); I65.23 Occlusion and stenosis of bilateral carotid arteries | CPT/HCPCS: 93880 ==

== ENCOUNTER 2018-03-18 09:38 | Emergency (ER) | payer OTHER ==
[~2018-03-18] VITALS: Ht 182.9 cm; Wt 82.1 kg
[~2018-03-18 09:38] MED LIST changes: -AMIO200T2 PO; +AMIO200T4 PO; +AMLO5TAB2 PO; +BRIM5DRO2 OP; +BUDE10.2 IH; +DILT120C71 PO; -FERR-26 PO; +FERR325T14 PO; +GLIP5TAB22 PO; +INSU100I17 SQ; +LATA2.5D3 EACHEYE; +LIDO700A39 TP; +PANT40TA5 PO; +VALS320T2 PO
[2018-03-18 11:19] LABS: BASO # 0.1 x10^3/uL (0.0-0.2); BASO % 1 % (0-3); EOS % 1 % (0-3); HEMATOCRIT 36.2 % (39.0-53.0); HEMOGLOBIN 12.3 g/dL (13.0-17.5); LYMPH # 1.6 x10^3/uL (1.0-4.8); LYMPH % 28 % (24-48); MEAN CORPUSCULAR HEMOGLOBIN 29 pg (25-35); MEAN CORPUSCULAR HGB CONC 34 g/dL (31-37); MEAN CORPUSCULAR VOLUME 85 fL (79-100); MONO # 0.4 x10^3/uL (0.0-1.1); MONO % 7 % (0-9); NEUT # 3.6 x10^3uL (1.8-7.7); NEUT % 64 % (31-73); PLATELET COUNT 233 x10^3/uL (140-400); RED BLOOD COUNT 4.25 x10^6/uL (4.30-5.70); RED CELL DISTRIBUTION WIDTH 15.2 % (11.5-14.5); WHITE BLOOD COUNT 5.7 x10^3/uL (4.0-11.0)
[2018-03-18 11:34] LABS: CALCIUM 9.5 mg/dL (8.5-10.1); CREATININE 1.7 mg/dL (0.7-1.3); GFR 46.5; POTASSIUM 4.3 mmol/L (3.5-5.1)
--- NOTE | 2018-03-18 11:45 | EKG ---
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
--- NOTE | 2018-03-18 11:58 | RAD ---
CT HEAD WO CONTRAST History: PROGRESSIVE DIZZINESS, LOSS OF BALANCE Comparison: October 09, 2014 Technique: Noncontrast CT imaging was performed of the head. Exposure: One or more of the following individualized dose reduction techniques were utilized for this examination: 1. Automated exposure control 2. Adjustment of the mA and/or kV according to patient size 3. Use of iterative reconstruction technique. Findings: No acute extra-axial or parenchymal hemorrhage is identified. There is no significant intra-axial mass effect, midline shift, or extra-axial fluid collection. The lopez-white differentiation of the major vascular territories is preserved. The ventricles, sulci, and cisterns are within normal limits in size and configuration. The mastoid air cells and the visualized paranasal sinuses are aerated. No acute calvarial abnormality is identified. There is atherosclerotic calcification of the carotid siphons bilaterally. Impression: 1. No acute intracranial abnormality is identified. Electronically signed by: Ryan Nicole MD (03/18/2018 11:54 AM) [id number]
--- NOTE | 2018-03-18 13:29 | PHYS DOC ---
Past Medical History Past Medical History: Anemia, CAD, Constipation, COPD, Diabetes-Type II, GERD, High Cholesterol, Hypertension, AL, Renal Disease, Sciatica Additional Past Medical Histor: " IRREGULAR HEART BEAT" VICENTA, CERVICALGIA, ENLARGED PROSTATE, TACHYCARDIA Past Surgical History: Other Additional Past Surgical Histo: CARDIAC STENTS Alcohol Use: None Drug Use: None Adult General Chief Complaint Chief Complaint: DIZZY/LIGHT HEADED HPI HPI Patient is a 88 year old male who presents with dizziness. Patient states he had symptoms onset about 5 days ago. He reports some dizziness that is particularly worse with position changes. He has been eating and drinking normally. He denies chest pain or shortness of breath or palpitations. has had no fever or chills. His symptoms worsened today so he went to his primary care doctor and was further referred to come to the emergency department. She states he has some difficulties with ambulation although normally he can walk unassisted.. Review of Systems Review of Systems Constitutional: Denies fever Eyes: Denies change in visual acuity, HENT: Denies nasal congestion or sore throat Respiratory: Denies cough or shortness of breath Cardiovascular: No additional information not addressed GI: Denies abdominal pain, nausea, vomiting : Denies dysuria or hematuria Musculoskeletal: Denies back pain Integument: Denies rash or skin lesions Neurologic: Denies headache All other systems were reviewed and found to be within normal limits, except as documented in this note. Current Medications Current Medications Current Medications Medications (Trade) Dose Ordered Sig/Alberto Start Time Stop Time Status Last Admin Dose Admin Clonidine HCl (Catapres) 0.1 mg 1X ONCE 03/18/18 15:15 03/18/18 15:16 DC Allergies Allergies Allergies Coded Allergies Type Severity Reaction Last Updated Verified Iodinated Contrast- Oral and IV Dye Allergy Intermediate BLISTERS 03/03/14 Yes Penicillins Allergy Intermediate Hives 03/03/14 Yes Physical Exam Physical Exam Constitutional: Well developed, well nourished, no acute distress, non-toxic appearance. HENT: Normocephalic, atraumatic, bilateral external ears normal, oropharynx moist, no oral exudates, nose normal. Eyes: PERRLA, EOMI, conjunctiva normal, no discharge. Neck: Normal range of motion, no tenderness, supple, no stridor. Cardiovascular:Heart rate regular rhythm, no murmur Lungs & Thorax: Bilateral breath sounds clear to auscultation Abdomen: Bowel sounds normal, soft, no tenderness, no masses, no pulsatile masses. Skin: Warm, dry, no erythema, no rash. Back: No tenderness, no CVA tenderness. Extremities: No tenderness, no cyanosis, no clubbing, ROM intact, no edema. Neurologic: Alert and oriented X 3, normal motor function, normal sensory function, no focal deficits noted. Psychologic: Affect normal, judgement normal, mood normal. Current Patient Data Vital Signs Vital Signs Date Time Temp Pulse Resp B/P (MAP) Pulse Ox O2 Delivery O2 Flow Rate FiO2 03/18/18 14:30 53 99 03/18/18 14:02 196/91 03/18/18 10:13 98.1 18 Room Air 98.1 Lab Values Laboratory Tests Test 03/18/18 10:35 03/18/18 10:40 Sodium Level 140 mmol/L (136-145) Potassium Level 4.3 mmol/L (3.5-5.1) Chloride Level 105 mmol/L (98-107) Carbon Dioxide Level 26 mmol/L (21-32) Anion Gap 9 (6-14) Blood Urea Nitrogen 18 mg/dL (8-26) Creatinine 1.7 mg/dL (0.7-1.3) H Estimated GFR (Cockcroft-Gault) 46.5 Glucose Level 103 mg/dL (70-99) H Calcium Level 9.5 mg/dL (8.5-10.1) White Blood Count 5.7 x10^3/uL (4.0-11.0) Red Blood Count 4.25 x10^6/uL (4.30-5.70) L Hemoglobin 12.3 g/dL (13.0-17.5) L Hematocrit 36.2 % (39.0-53.0) L Mean Corpuscular Volume 85 fL (79-100) Mean Corpuscular Hemoglobin 29 pg (25-35) Mean Corpuscular Hemoglobin Concent 34 g/dL (31-37) Red Cell Distribution Width 15.2 % (11.5-14.5) H Platelet Count 233 x10^3/uL (140-400) Neutrophils (%) (Auto) 64 % (31-73) Lymphocytes (%) (Auto) 28 % (24-48) Monocytes (%) (Auto) 7 % (0-9) Eosinophils (%) (Auto) 1 % (0-3) Basophils (%) (Auto) 1 % (0-3) Neutrophils # (Auto) 3.6 x10^3uL (1.8-7.7) Lymphocytes # (Auto) 1.6 x10^3/uL (1.0-4.8) Monocytes # (Auto) 0.4 x10^3/uL (0.0-1.1) Eosinophils # (Auto) 0.0 x10^3/uL (0.0-0.7) Basophils # (Auto) 0.1 x10^3/uL (0.0-0.2) Prothrombin Time 14.0 SEC (11.7-14.0) Prothrombin Time INR 1.1 (0.8-1.1) PTT 32 SEC (24-38) Troponin I Quantitative < 0.017 ng/mL (0.000-0.055) CK-Nbk-Z-Type Natriuretic Peptide 465 pg/mL (0-449) H Laboratory Tests 03/18/18 10:40 Laboratory Tests 03/18/18 10:35 EKG EKG No STEMI, no significant change from July 2017 Interpretation Time: 10:20 Radiology/Procedures Radiology/Procedures Findings: No acute extra-axial or parenchymal hemorrhage is identified. There is no significant intra-axial mass effect, midline shift, or extra-axial fluid collection. The lopez-white differentiation of the major vascular territories is preserved. The ventricles, sulci, and cisterns are within normal limits in size and configuration. The mastoid air cells and the visualized paranasal sinuses are aerated. No acute calvarial abnormality is identified. There is atherosclerotic calcification of the carotid siphons bilaterally. Impression: 1. No acute intracranial abnormality is identified. Course & Med Decision Making Course & Med Decision Making Pertinent Labs and Imaging studies reviewed. (See chart for details) Patient was observed in the ER for several hours. He had blood pressures around 200 systolic. The patient's symptoms did correspond to when he began taking lisinopril. His workup is negative. His EKG is normal. His neurologic exam is nonfocal. His troponin is not elevated. The patient was given clonidine in the ER. His blood pressure did improve. The patient was ambulated prior to discharge. He had a normal steady gait. He was asymptomatic. After the patient admission for control of his blood pressure and inpatient evaluation but the patient strongly desired to go home. We were able to arrange an appointment for the patient to be seen by his primary care physician tomorrow. Ultimately, patient was discharged home. He was advised to come back to the ER for any new or worsening symptoms. He was accompanied by his who is driving him home today. Dragon Disclaimer Dragon Disclaimer This electronic medical record was generated, in whole or in part, using a voice recognition dictation system. Departure Departure Referrals: AB LEVI MD (PCP) YOLI RIVERA DO Mar 18, 2018 13:28
[2018-03-18] MEDS ORDERED: cloNIDine HCL 0.1 MG TABLET PO ONE ×2 (14:00→15:15)
[2018-03-18 14:30] VITALS: BP 198/84
== END 2018-03-18 15:37 | disposition home or self-care (01) ==
LOC: ER 09:38
DX: I10 Essential (primary) hypertension (principal); R42 Dizziness and giddiness; I25.10 Atherosclerotic heart disease of native coronary artery without angina pectoris; J44.9 Chronic obstructive pulmonary disease, unspecified; E11.9 Type 2 diabetes mellitus without complications; K21.9 Gastro-esophageal reflux disease without esophagitis; E78.00 Pure hypercholesterolemia, unspecified; I25.2 Old myocardial infarction; I65.23 Occlusion and stenosis of bilateral carotid arteries; N28.9 Disorder of kidney and ureter, unspecified; Z86.2 Personal history of diseases of the blood and blood-forming organs and certain disorders involving the immune mechanism; Z88.0 Allergy status to penicillin; Z91.041 Radiographic dye allergy status
CPT/HCPCS: 36415; 70450; 80048; 83880; 84484; 85025; 85610; 85730; 93005; 99285-25

== ENCOUNTER 2018-06-28 20:26 | Observation (INO) | payer MEDICARE, OTHER ==
[~2018-06-28] VITALS: Ht 182.9 cm; Wt 83.0 kg
[~2018-06-28 20:26] MED LIST changes: -AMLO5TAB2 PO; +AMLO5TAB7 PO; +CARV6.2511 PO; -CARV6.252 PO; -DILT120C80 PO; +DILT120C85 PO; -GABA-587 PO; +GABA-689 PO; -HYDR-2762 PO; +HYDR-2765 PO; -SENN-79 PO; +SENN-80 PO
--- NOTE | 2018-06-28 21:15 | PHYS DOC ---
Past Medical History Past Medical History: Anemia, CAD, Constipation, COPD, Diabetes-Type II, GERD, High Cholesterol, Hypertension, MD, Renal Disease, Sciatica Additional Past Medical Histor: " IRREGULAR HEART BEAT" VICENTA, CERVICALGIA, ENLARGED PROSTATE, TACHYCARDIA Past Surgical History: Other Additional Past Surgical Histo: CARDIAC STENTS Alcohol Use: None Drug Use: None Adult General Chief Complaint Chief Complaint: Weakness/fatigue/CP HPI HPI Patient is a 88 year old male with a hx of DM and CAD with a stent x1 who presents with weakness, fatigue, and left sided CP. Pt reports these Sx began around 1 pm this afternoon. His CP has been intermittent and he describes it as left sided chest wall pain which radiates into his shoulder and arm. HE HAS ACTUALLY HAD IT FOR TWO MONTHS BUT SEEMED WORST TODAY He also endorses SOB "from time to time", but denies any worsening SOB today. He has never experienced CP like this in the past. Pt also reports that he has been sick recently with a productive cough and rhinorrhea, as well as, sinus pressure and congestion. He denies fevers and chills No recent fall or trauma. Review of Systems Review of Systems Constitutional: + lightheaded, +fatigue, + generalized weakness. Denies fever or chills [] Eyes: Denies change in visual acuity, redness, or eye pain [] HENT: Denies nasal congestion or sore throat [] Respiratory: + cough and SOB Cardiovascular: + L sided CP GI: Denies abdominal pain, nausea, vomiting, bloody stools or diarrhea [] : Denies dysuria or hematuria [] Musculoskeletal: Denies back pain or joint pain [] Integument: Denies rash or skin lesions [] Neurologic: Denies headache, focal weakness or sensory changes [] Endocrine: Denies polyuria or polydipsia [] All other systems were reviewed and found to be within normal limits, except as documented in this note. Current Medications Current Medications Current Medications Medications (Trade) Dose Ordered Sig/Alberto Start Time Stop Time Status Last Admin Dose Admin Amlodipine Besylate (Norvasc) 10 mg 1X ONCE 06/28/18 22:45 06/28/18 22:46 DC 06/28/18 22:57 10 MG Aspirin (Children'S Aspirin) 324 mg 1X ONCE 06/28/18 21:45 06/28/18 21:46 DC 06/28/18 21:47 324 MG Doxycycline Hyclate (Vibra-Tab) 100 mg 1X ONCE 06/28/18 21:45 06/28/18 21:46 DC 06/28/18 21:47 100 MG Hydralazine HCl (Apresoline) 50 mg 1X ONCE 06/28/18 23:00 06/28/18 23:01 DC 06/28/18 22:55 50 MG Nitroglycerin (Nitro-Bid Oint) 2 inch 1X ONCE 06/28/18 23:15 06/28/18 23:16 UNV Allergies Allergies Allergies Coded Allergies Type Severity Reaction Last Updated Verified Iodinated Contrast- Oral and IV Dye Allergy Intermediate BLISTERS 03/03/14 Yes Penicillins Allergy Intermediate Hives 03/03/14 Yes Physical Exam Physical Exam Constitutional: Appears lethargic and fatigued. Well developed, well nourished, no acute distress, non-toxic appearance. [] HENT: Normocephalic, atraumatic, bilateral external ears normal, oropharynx moist, no oral exudates, nose normal. [] Eyes: PERRLA, EOMI, conjunctiva INJECTED, no discharge. [] Neck: Normal range of motion, no tenderness, supple, no stridor. [] Cardiovascular:Heart rate regular rhythm, no murmur [] Lungs & Thorax: Bilateral breath sounds clear to auscultation [] Abdomen: Bowel sounds normal, soft, no tenderness, no masses, no pulsatile masses. [] Skin: Warm, dry, no erythema, no rash. [] Back: No tenderness, no CVA tenderness. [] Extremities: No tenderness, no cyanosis, no clubbing, ROM intact, no edema. [] Neurologic: Alert and oriented X 3, normal motor function, normal sensory function, no focal deficits noted. [] Psychologic: Affect normal, judgement normal, mood normal. [] Current Patient Data Vital Signs Vital Signs Date Time Temp Pulse Resp B/P (MAP) Pulse Ox O2 Delivery O2 Flow Rate FiO2 06/28/18 22:57 56 213/98 06/28/18 22:05 14 97 Room Air 06/28/18 20:26 97.8 97.8 Lab Values Laboratory Tests Test 06/28/18 21:30 White Blood Count 6.4 x10^3/uL (4.0-11.0) Red Blood Count 3.97 x10^6/uL (4.30-5.70) L Hemoglobin 11.6 g/dL (13.0-17.5) L Hematocrit 33.6 % (39.0-53.0) L Mean Corpuscular Volume 85 fL (79-100) Mean Corpuscular Hemoglobin 29 pg (25-35) Mean Corpuscular Hemoglobin Concent 35 g/dL (31-37) Red Cell Distribution Width 16.0 % (11.5-14.5) H Platelet Count 245 x10^3/uL (140-400) Neutrophils (%) (Auto) 56 % (31-73) Lymphocytes (%) (Auto) 32 % (24-48) Monocytes (%) (Auto) 8 % (0-9) Eosinophils (%) (Auto) 2 % (0-3) Basophils (%) (Auto) 1 % (0-3) Neutrophils # (Auto) 3.6 x10^3uL (1.8-7.7) Lymphocytes # (Auto) 2.1 x10^3/uL (1.0-4.8) Monocytes # (Auto) 0.5 x10^3/uL (0.0-1.1) Eosinophils # (Auto) 0.1 x10^3/uL (0.0-0.7) Basophils # (Auto) 0.1 x10^3/uL (0.0-0.2) Prothrombin Time 14.0 SEC (11.7-14.0) Prothrombin Time INR 1.1 (0.8-1.1) Sodium Level 138 mmol/L (136-145) Potassium Level 4.1 mmol/L (3.5-5.1) Chloride Level 104 mmol/L (98-107) Carbon Dioxide Level 25 mmol/L (21-32) Anion Gap 9 (6-14) Blood Urea Nitrogen 12 mg/dL (8-26) Creatinine 1.7 mg/dL (0.7-1.3) H Estimated GFR (Cockcroft-Gault) 46.5 BUN/Creatinine Ratio 7 (6-20) Glucose Level 147 mg/dL (70-99) H Calcium Level 9.4 mg/dL (8.5-10.1) Magnesium Level 1.9 mg/dL (1.8-2.4) Total Bilirubin 0.4 mg/dL (0.2-1.0) Aspartate Amino Transferase (AST) 19 U/L (15-37) Alanine Aminotransferase (ALT) 24 U/L (16-63) Alkaline Phosphatase 109 U/L (46-116) Troponin I Quantitative < 0.017 ng/mL (0.000-0.055) YG-Sbj-N-Type Natriuretic Peptide 221 pg/mL (0-449) Total Protein 6.9 g/dL (6.4-8.2) Albumin 3.0 g/dL (3.4-5.0) L Albumin/Globulin Ratio 0.8 (1.0-1.7) L Laboratory Tests 06/28/18 21:30 Laboratory Tests 06/28/18 21:30 EKG EKG []EKG shows a normal sinus rhythm rate of 58 overall compared to prior EKG dated March 18, 2018 is similar no STEMI seen interpreted by me the time of encounter intervals are normal Radiology/Procedures Radiology/Procedures [] Impressions: cxr negative acute, possible mild pulmonary vascular congestion. Course & Med Decision Making Course & Med Decision Making Pertinent Labs and Imaging studies reviewed. (See chart for details) Assessment: 88 y/o male presents with fatigue, generalized weakness, and left sided CP 1. ACS/MD 2. pneumonia 3. electrolyte abnormality Plan: EKG Labs- CBC, CMP, serial troponin, Mg, BNP CXR DOES NOT SOUND LIKE PE OR DISSECTION. trop pending aspirin given pt has been having bronchitis symptoms will give abx for this. cxr no definite pna, possible mild pulmoanry vascular congestion PT BP going up will give him his oral bp meds [facility] chest pain rule out. Dragon Disclaimer Dragon Disclaimer This electronic medical record was generated, in whole or in part, using a voice recognition dictation system. Departure Departure Impression: Primary Impression: Chest pain Disposition: ADMITTED INPATIENT Admitting Physician: Sami Horn Condition: STABLE Referrals: AB LEVI MD (PCP) TRACY MUJICA MD Jun 28, 2018 21:15
[2018-06-28 21:41] LABS: BASO # 0.1 x10^3/uL (0.0-0.2); BASO % 1 % (0-3); EOS # 0.1 x10^3/uL (0.0-0.7); EOS % 2 % (0-3); HEMATOCRIT 33.6 % (39.0-53.0); HEMOGLOBIN 11.6 g/dL (13.0-17.5); LYMPH # 2.1 x10^3/uL (1.0-4.8); LYMPH % 32 % (24-48); MEAN CORPUSCULAR HEMOGLOBIN 29 pg (25-35); MEAN CORPUSCULAR HGB CONC 35 g/dL (31-37); MEAN CORPUSCULAR VOLUME 85 fL (79-100); MONO # 0.5 x10^3/uL (0.0-1.1); MONO % 8 % (0-9); NEUT # 3.6 x10^3uL (1.8-7.7); NEUT % 56 % (31-73); PLATELET COUNT 245 x10^3/uL (140-400); RED BLOOD COUNT 3.97 x10^6/uL (4.30-5.70); WHITE BLOOD COUNT 6.4 x10^3/uL (4.0-11.0)
[2018-06-28] MEDS ORDERED: DOXYCYCLINE HYCLATE 100 MG TABLET PO ONE (21:45)
[2018-06-28] MEDS ORDERED: ASPIRIN CHEWABLE 81 MG TABLET. PO ONE (21:45)
[2018-06-28 21:49] LABS: CALCIUM 9.4 mg/dL (8.5-10.1); CREATININE 1.7 mg/dL (0.7-1.3); GFR 46.5; POTASSIUM 4.1 mmol/L (3.5-5.1)
[2018-06-28 21:54] LABS: ALBUMIN/GLOBULIN RATIO 0.8 (1.0-1.7); MAGNESIUM 1.9 mg/dL (1.8-2.4); TOTAL BILIRUBIN 0.4 mg/dL (0.2-1.0); TOTAL PROTEIN 6.9 g/dL (6.4-8.2)
[2018-06-28] MEDS ORDERED: NETA2.5D OP (22:09)
[2018-06-28] MEDS ORDERED: TROS20TA2 PO (22:09)
[2018-06-28] MEDS ORDERED: DORZ10DR6 EACHEYE (22:09)
[2018-06-28] MEDS ORDERED: TELM80TA PO (22:09)
[2018-06-28] MEDS ORDERED: amLODIPine BESYLATE 5 MG TABLET PO ONE (22:45)
[2018-06-28] MEDS ORDERED: NITROGLYCERIN OINT 1 GM PACKET. TP ONE (23:15)
[2018-06-29 01:00] VITALS: BP 151/67
[2018-06-29 03:05] VITALS: BP 161/65
--- NOTE | 2018-06-29 03:24 | RAD ---
AP portable chest radiograph 06/28/2018 Clinical History: Chest pain. An AP erect portable digital radiograph of the chest was obtained. Comparison study is dated 08/12/2017. The cardiac silhouette is mildly enlarged. Atherosclerotic calcification of the thoracic aorta is seen. The thoracic aorta is mildly tortuous. No acute pulmonary infiltrate is seen. No pleural effusion or pneumothorax is noted. Degenerative changes are seen involving the thoracic spine and both shoulders. Impression: No acute abnormality is seen. Electronically signed by: Umesh Hubbard MD (06/29/2018 3:20 AM) [id number]
[2018-06-29 07:00] VITALS: BP 151/72
--- NOTE | 2018-06-29 09:55 | HP ---
ADMIT DATE: 06/29/2018 CHIEF COMPLAINT: Chest pain. HISTORY OF PRESENT ILLNESS: The patient is a pleasant elderly male who smokes crack cocaine all the time, he says. I explained to him CANDY HAMEED DO DR: RUTHY/tiffany JOB#: [id number] / [id number]
[2018-06-29] MEDS ORDERED: amLODIPine BESYLATE 5 MG TABLET PO SCH (10:00)
[2018-06-29] MEDS ORDERED: AMIODARONE HCL 200 MG TABLET. PO SCH (10:00)
[2018-06-29] MEDS ORDERED: SENNOSIDES 8.6 MG TABLET PO SCH (10:00)
[2018-06-29] MEDS ORDERED: MULTIVITAMIN with MINERAL TABLET. PO SCH (10:00)
[2018-06-29] MEDS ORDERED: LOSARTAN POTASSIUM 50 MG TABLET. PO SCH (10:00)
[2018-06-29] MEDS ORDERED: CLOPIDOGREL BISULFATE 75 MG TABLET PO SCH (10:00)
[2018-06-29 11:10] VITALS: BP 154/67
[2018-06-29] MEDS ORDERED: PANTOPRAZOLE 40 MG TABLET.DR. PO SCH (11:30)
--- NOTE | 2018-06-29 11:32 | HP ---
ADMIT DATE: CHIEF COMPLAINT: Chest pain, weakness, and fatigue. HISTORY OF PRESENT ILLNESS: The patient is a pleasant 88-year-old male with known coronary artery disease. He presents with chest pain, rated at 7/10. He complains of left-sided pain with pressure, worse with moving, better with sitting still. He tried to increase his home meds, but that was not working, describes as agonizing. He has actually had the pain for 2 months, but it has been worsening over the past couple of days. He has some shortness of breath from time to time. I discussed the case with ER physician. The patient does have known coronary artery disease with a previous stent. We are going to admit the patient and consult Cardiology. PAST MEDICAL HISTORY: CAD with previous stent, GERD, hypertension, hyperlipidemia, anemia, bradycardia, BPH, chronic renal insufficiency, sciatica, hypertension, TIA, arrhythmias. ALLERGIES: IODINE and PENICILLIN. FAMILY HISTORY: Coronary artery disease. SOCIAL HISTORY: He does not drink, smoke or take drugs. He is retired. MEDICATIONS: Reviewed. He is on 15 home medications including Plavix, amiodarone, Lipitor, hydralazine, terazosin, amlodipine, Micardis, Trusopt eyedrops, senna, Protonix, Lantus and vitamins. REVIEW OF SYSTEMS: GENERAL: No history of weight change, weakness or fevers. SKIN: No bruising, hair changes or rashes. EYES: No blurred, double or loss of vision. NOSE AND THROAT: No history of nosebleeds, hoarseness or sore throat. HEART: He complains of chest pain. LUNGS: Denies cough, hemoptysis, wheezing or shortness of breath. GASTROINTESTINAL: Denies changes in appetite, nausea, vomiting, diarrhea or constipation. GENITOURINARY: No history of frequency, urgency, hesitancy or nocturia. NEUROLOGIC: Denies history of numbness, tingling, tremor or weakness. PSYCHIATRIC: No history of panic, anxiety or depression. ENDOCRINE: No history of heat or cold intolerance, polyuria or polydipsia. EXTREMITIES: Denies muscle weakness, joint pain, pain on walking or stiffness. PHYSICAL EXAMINATION: VITAL SIGNS: Temperature afebrile, pulse 60, respirations 18, blood pressure 151/90. GENERAL: He is alert, cooperative. HEART: Normal S1, S2, without any murmurs. LUNGS: Clear to auscultation. ABDOMEN: Soft, positive bowel sounds. EXTREMITIES: Trace edema. Pedal pulses are intact. ENDOCRINE: No thyromegaly. LYMPHATICS: No cervical chain or axillary nodes noted. HEMATOPOIETIC: No bruising. PSYCHIATRIC: He is a little anxious. NEUROLOGICAL: He is moving all extremities. No focal deficits. LABORATORY DATA: White count 6, hemoglobin 12, platelets 245. Electrolytes are pending. Troponin is 0. Chest x-ray was negative. ASSESSMENT AND PLAN: Chest pain with known coronary artery disease. Rule out recurrent coronary artery disease. The patient has been admitted. We will check serial enzymes, serial EKGs. Consult Cardiology, cardiac monitoring, continue home medicines, frequent labs, PT, OT. CANDY HAMEED DO DR: RUTHY/tiffany JOB#: [id number] / [id number]
--- NOTE | 2018-06-29 12:23 | PDOC2 ---
CARDIOLOGY CONSULT NOTE CHEIF COMPLAINT: Chest pain, fatigue, weakness HPI: Mr. Doll is a pleasant 88 y/o male w/pmhx of CAD s/p PCI, T2DM, HTN, HLD that presents with chief complaint of left sided chest pain. He reports that the pain has been occurring for around the last 2 months, however he states yesterday it was much worse prompting him to come to the ED. He describes the pain as a sharp pain that is located in his upper chest/neck on the left side. He states that it is not associated with activity, and not associated with any SOB or diaphoresis. He does report that the chest pain was worse when he moved his shoulder. In the ED he was found to be HTN into the 200's systolic he did have an EKG that was shown to be sinus rhythm without any concern for ST elevation. He was given ASA and admitted for chest pain r/o. Overnight he reports that he slept well and that his chest pain has now completely resolved. He denies any new symptoms and feels that he is ready to go home. PMHX: T2DM, HTN, Dyslipidemia, CAD s/p PCI with stent 7 yrs ago, CKD SOCHX: Tobacco: Denies, ETOH: Denies, Rec Drugs: Denies FAMHX: Mom: Heart Disease, Dad: Heart Disease, Brother: Heart Disease CURRENT MEDS: Current Medications Medications (Trade) Dose Ordered Sig/Alberto Start Time Stop Time Status Last Admin Dose Admin Amiodarone HCl (Cordarone) 200 mg DAILY 06/29/18 10:00 06/29/18 10:39 200 MG Amlodipine Besylate (Norvasc) 5 mg DAILY 06/29/18 10:00 06/29/18 10:38 5 MG Aspirin (Children'S Aspirin) 324 mg 1X ONCE 06/28/18 21:45 06/28/18 21:46 DC 06/28/18 21:47 324 MG Atorvastatin Calcium (Lipitor) 40 mg QHS 06/29/18 21:00 Clopidogrel Bisulfate (Plavix) 75 mg DAILY 06/29/18 10:00 06/29/18 10:38 75 MG Dorzolamide HCl (Trusopt) 1 drop BID 06/29/18 21:00 Doxycycline Hyclate (Vibra-Tab) 100 mg 1X ONCE 06/28/18 21:45 06/28/18 21:46 DC 06/28/18 21:47 100 MG Hydralazine HCl (Apresoline) 50 mg TID 06/29/18 10:00 06/29/18 10:37 50 MG Insulin Glargine (Lantus) 14 units QHS 06/29/18 21:00 Latanoprost (Xalatan) 1 drop QHS 06/29/18 21:00 Losartan Potassium (Cozaar) 100 mg DAILY 06/29/18 10:00 06/29/18 10:37 100 MG Multivitamins (Thera M Plus) 1 tab DAILY 06/29/18 10:00 06/29/18 10:38 1 TAB Nitroglycerin (Nitro-Bid Oint) 2 inch 1X ONCE 06/28/18 23:15 06/28/18 23:16 DC 06/29/18 00:05 2 INCH Pantoprazole Sodium (Protonix) 40 mg DAILYAC 06/29/18 11:30 06/29/18 10:37 40 MG Sennosides (Senna) 8.6 mg DAILY 06/29/18 10:00 06/29/18 10:37 8.6 MG Terazosin HCl (Hytrin) 10 mg QHS 06/29/18 21:00 ALLERGIES: Allergies Coded Allergies Type Severity Reaction Last Updated Verified Iodinated Contrast- Oral and IV Dye Allergy Intermediate BLISTERS 03/03/14 Yes Penicillins Allergy Intermediate Hives 03/03/14 Yes ROS: 14 point system was reviewed and is negative other then described in HPI and past medical and surgical history. PHYSICAL EXAM: Vital Signs: Vital Signs Date Time Temp Pulse Resp B/P (MAP) Pulse Ox O2 Delivery O2 Flow Rate FiO2 06/29/18 11:10 98.7 71 20 154/67 (96) 97 Room Air 98.7 I & O Intake and Output 06/29/18 07:00 Intake Total 75 ml Balance 75 ml Intake Oral 75 ml # Voids 3 Physical Exam: GEN.: No apparent distress. Alert and oriented. HEENT: Head is normocephalic, atraumatic NECK: Supple. LUNGS: Clear to auscultation. HEART: RRR, S1, S2 present. Peripheral pulses intact, chest Non TTP ABDOMEN: Soft, nontender. Positive bowel sounds. EXTREMITIES: Without any cyanosis. NEUROLOGIC: Normal speech, normal tone PSYCHIATRIC: Normal affect, normal mood. SKIN: No ulcerations DIAGNOSTIC TESTING: Lab Laboratory Tests Test 06/28/18 21:30 06/29/18 00:01 06/29/18 07:46 06/29/18 12:04 White Blood Count 6.4 x10^3/uL (4.0-11.0) Red Blood Count 3.97 x10^6/uL (4.30-5.70) L Hemoglobin 11.6 g/dL (13.0-17.5) L Hematocrit 33.6 % (39.0-53.0) L Mean Corpuscular Volume 85 fL (79-100) Mean Corpuscular Hemoglobin 29 pg (25-35) Mean Corpuscular Hemoglobin Concent 35 g/dL (31-37) Red Cell Distribution Width 16.0 % (11.5-14.5) H Platelet Count 245 x10^3/uL (140-400) Neutrophils (%) (Auto) 56 % (31-73) Lymphocytes (%) (Auto) 32 % (24-48) Monocytes (%) (Auto) 8 % (0-9) Eosinophils (%) (Auto) 2 % (0-3) Basophils (%) (Auto) 1 % (0-3) Neutrophils # (Auto) 3.6 x10^3uL (1.8-7.7) Lymphocytes # (Auto) 2.1 x10^3/uL (1.0-4.8) Monocytes # (Auto) 0.5 x10^3/uL (0.0-1.1) Eosinophils # (Auto) 0.1 x10^3/uL (0.0-0.7) Basophils # (Auto) 0.1 x10^3/uL (0.0-0.2) Prothrombin Time 14.0 SEC (11.7-14.0) Prothromb Time International Ratio 1.1 (0.8-1.1) Sodium Level 138 mmol/L (136-145) Potassium Level 4.1 mmol/L (3.5-5.1) Chloride Level 104 mmol/L (98-107) Carbon Dioxide Level 25 mmol/L (21-32) Anion Gap 9 (6-14) Blood Urea Nitrogen 12 mg/dL (8-26) Creatinine 1.7 mg/dL (0.7-1.3) H Estimated GFR (Cockcroft-Gault) 46.5 BUN/Creatinine Ratio 7 (6-20) Glucose Level 147 mg/dL (70-99) H Calcium Level 9.4 mg/dL (8.5-10.1) Total Bilirubin 0.4 mg/dL (0.2-1.0) Aspartate Amino Transf (AST/SGOT) 19 U/L (15-37) Alkaline Phosphatase 109 U/L (46-116) Total Protein 6.9 g/dL (6.4-8.2) Albumin 3.0 g/dL (3.4-5.0) L Albumin/Globulin Ratio 0.8 (1.0-1.7) L Cholesterol Level 156 mg/dL (0-200) LDL Cholesterol, Calculated 76 mg/dL (0-100) VLDL Cholesterol, Calculated 28 mg/dL (0-40) Non-HDL Cholesterol Calculated 104 mg/dL (0-129) Cholesterol/HDL Ratio 3.0 Glucose (Fingerstick) 101 mg/dL (70-99) H 164 mg/dL (70-99) H ASSESSMENT: #1. Atypical Chest Pain - negative for ST elevation on EKG, Trop - x 3, chest pain most likely MSK vs HTN urgency #2. CAD - Stable with cardiac catheterization 2017 [employer] RCA with nonobstructive disease in LAD #3. PAD - Stable #4. HTN - Continue home Losartan, and Hydralazine, will increase Amlodipine dose to 10 mg PLAN: Increase Amlodipine to 10 mg daily Ok to DC from CV standpoint Thanks for this consultation. he will f/u with Dr. Holbrook in 4-6 weeks. FRANCO ESPARZA MD Jun 29, 2018 12:23
[2018-06-29] MEDS ORDERED: AMLO10TA6 PO (13:57)
[2018-06-29] MEDS ORDERED: TERAZOSIN 5 MG CAPSULE. PO SCH (21:00)
[2018-06-29] MEDS ORDERED: INSULIN GLARGINE 300 UNITS/3 ML INSULN.PEN. SQ SCH (21:00)
[2018-06-29] MEDS ORDERED: ATORVASTATIN CALCIUM 40 MG TABLET. PO SCH (21:00)
[2018-06-29] MEDS ORDERED: DORZOLAMIDE 2% OPHTH SOLUTION 10ML BOTTLE. OU SCH (21:00)
[2018-06-29] MEDS ORDERED: LATANOPROST 0.005% OPHTH SOLUTION 2.5ML BOTTLE. OU SCH (21:00)
--- NOTE | 2018-06-29 22:36 | DS ---
DATE OF DISCHARGE: 06/29/2018 ADMISSION DIAGNOSES: Chest pain with known history of previous coronary disease and previous stents. DISCHARGE DIAGNOSES: Atypical chest pain, history of gastroesophageal reflux disease, hypertension, hyperlipidemia, anemia, bradycardia, benign prostatic hypertrophy, chronic renal insufficiency, sciatica, hypertension, transient ischemic attacks and arrhythmias. CONSULTS: Cardiology. PROCEDURES: None. HOSPITAL COURSE: The patient is a pleasant elderly male who presented with chest pain. He was admitted. We checked serial enzymes, serial EKGs. We did cardiac monitoring. We consulted Cardiology. His workup was negative. We felt it was probably musculoskeletal or GERD. We plan to discharge. DISPOSITION: Home. ACTIVITY: As tolerated. MEDICATIONS: Please see the MRAD. TOTAL TIME: 32 minutes. CANDY HAMEED DO DR: RUTHY/tiffany JOB#: [id number] / [id number]
--- NOTE | 2018-06-30 08:16 | EKG ---
[facility] [address] [place] [address] Test Date: 2018-06-28 Test Time: 20:33:01 Pat Name: BLAZE ZHENG Department: Room: 244 1 Gender: Male Documentation Spec: : 1930 Requested By: TRACY MUJICA Order Number: [id number] Reading MD: Michael Holbrook Measurements Intervals [place] Rate: 58 P: -135 DC: 254 QRS: -42 QRSD: 102 T: 53 QT: 444 QTc: 440 Interpretive Statements SINUS RHYTHM PROLONGED DC INTERVAL ABNORMAL LEFT AXIS DEVIATION LEFT ANTERIOR FASCICULAR BLOCK ABNORMAL ECG Electronically Signed On 07-01-2018 8:52:32 [employer] by Michael Holbrook
== END 2018-06-29 14:10 | disposition home or self-care (01) ==
LOC: ER 20:26 → 2 SOUTH 23:30
PROVIDERS: ADMIT Family Medicine; ATTEND Family Medicine
DX: R07.89 Other chest pain (principal); I25.10 Atherosclerotic heart disease of native coronary artery without angina pectoris; K21.9 Gastro-esophageal reflux disease without esophagitis; I12.9 Hypertensive chronic kidney disease with stage 1 through stage 4 chronic kidney disease, or unspecified chronic kidney disease; N18.9 Chronic kidney disease, unspecified; E78.5 Hyperlipidemia, unspecified; E11.22 Type 2 diabetes mellitus with diabetic chronic kidney disease; N40.0 Benign prostatic hyperplasia without lower urinary tract symptoms; J44.9 Chronic obstructive pulmonary disease, unspecified; F14.90 Cocaine use, unspecified, uncomplicated; Z86.73 Personal history of transient ischemic attack (TIA), and cerebral infarction without residual deficits; Z95.5 Presence of coronary angioplasty implant and graft
CPT/HCPCS: 36415; 71045; 80053; 80061; 82962; 83735; 83880; 84484; 85025; 85610; 93005; 99284; G0378; J1815; G0379